=== PATIENT | female | born 1955 | race Hispanic/Latino ===

== ENCOUNTER 2019-02-23 12:27 | Emergency (ER) | payer MEDICARE, OTHER ==
[2019-02-23] MEDS ORDERED: SODIUM CHLORIDE 0.9% 1000ML 1,000 ML IV ONE (13:08)
[2019-02-23] MEDS ORDERED: ACETAMINOPHEN 325 MG TAB ONE (13:08)
[2019-02-23 13:12] LABS: BASOPHILS % (AUTO) 0.5 % (0.0-5.0); EOSINOPHILS % (AUTO) 0.8 % (0.0-8.0); HEMATOCRIT 39.4 % (36-48); LYMPHOCYTES % (AUTO) 10.3 % (21.0-51.0); MEAN CORPUSCULAR HEMOGLOBIN 25.5 pg (27.0-33.0); MEAN CORPUSCULAR HGB CONC 31.5 g/dL (32.0-36.0); MEAN CORPUSCULAR VOLUME 80.9 fL (79-99); MONOCYTES % (AUTO) 5.8 % (3.0-13.0); NEUTROPHILS % (AUTO) 82.1 % (40.0-77.0); PLATELET COUNT (AUTO) 282 K/uL (130-400); RED BLOOD CELL COUNT(AUTO) 4.87 MIL/uL (4.00-5.50); RED CELL DISTRIBUTION WIDTH 14.5 % (11.0-15.5)
[2019-02-23 13:14] LABS: APPEARANCE,URINE CLOUDY (CLEAR); BILIRUBIN,URINE NEGATIVE (NEGATIVE); COLOR,URINE YELLOW (YELLOW); GLUCOSE, URINE (UA) NEGATIVE (NEGATIVE); KETONES,URINE NEGATIVE (NEGATIVE); LEUKOCYTE ESTERASE ,URINE LARGE (NEGATIVE); NITRATE,URINE POSITIVE (NEGATIVE); OCCULT BLOOD,URINE LARGE (NEGATIVE); PROTEIN,URINE 30 mg/dL (NEGATIVE)
[2019-02-23 13:19] LABS: CREATININE 1.2 mg/dL (0.5-1.5); POTASSIUM 3.2 mmol/L (3.5-5.1)
[2019-02-23 13:24] LABS: ALBUMIN 3.7 g/dL (3.5-5.0); BILIRUBIN,TOTAL 0.5 mg/dL (0.2-1.0); TOTAL PROTEIN, SERUM 8.3 g/dL (6.0-8.3)
[2019-02-23 13:25] LABS: BACTERIA,URINE Moderate /HPF (None Seen); WBC,URINE 26-50 /HPF (0-1)
[2019-02-23] MEDS ORDERED: CEFTRIAXONE SODIUM 1 GM ONE (13:30)
== END 2019-02-23 14:15 | disposition home or self-care (01) ==
LOC: EDH 12:27
DX: N39.0 Urinary tract infection, site not specified (principal); R51 Headache; I10 Essential (primary) hypertension; M19.90 Unspecified osteoarthritis, unspecified site; Z98.890 Other specified postprocedural states
CPT/HCPCS: 36415; 80053; 81001; 83605; 85025; 87040 ×2; 96374; 99284; J0696; J7030

== ENCOUNTER → 2021-05-15 | Outpatient (CLI) | payer OTHER, MEDICARE | END | disposition home or self-care (01) | LOC: RAH 10:42 | PROVIDERS: ATTEND Internal Medicine Gastroenterology | DX: R10.10 Upper abdominal pain, unspecified (principal); R11.10 Vomiting, unspecified; R14.0 Abdominal distension (gaseous); Z90.49 Acquired absence of other specified parts of digestive tract | CPT/HCPCS: 78264; A9541 ==

== ENCOUNTER → 2022-03-14 | Outpatient (CLI) | payer OTHER, MEDICARE | END | disposition home or self-care (01) | LOC: RAH 10:00 | PROVIDERS: ATTEND Internal Medicine Gastroenterology | DX: K21.9 Gastro-esophageal reflux disease without esophagitis (principal); K44.9 Diaphragmatic hernia without obstruction or gangrene; R10.10 Upper abdominal pain, unspecified; R13.10 Dysphagia, unspecified; R12 Heartburn | CPT/HCPCS: 74240 ==

== ENCOUNTER → 2022-04-09 | Outpatient (CLI) | payer OTHER, MEDICARE | END | disposition home or self-care (01) | LOC: RAH 08:16 | PROVIDERS: ATTEND Internal Medicine Gastroenterology | DX: R13.12 Dysphagia, oropharyngeal phase (principal); R63.30 Feeding difficulties, unspecified | CPT/HCPCS: 74230; 92611 ==

== ENCOUNTER → 2024-07-15 | Outpatient (CLI) | payer OTHER, MEDICARE ==
--- NOTE | 2024-07-15 13:41 | HMCIMG ---
Exam Type: US PELVIC NON-OB COMP Clinical Information: ABN RESULTS OF LIVER FUNCTION TESTS Comparison: None Findings: Uterus anteverted. Normal size and echogenicity. Normal endometrium. Right ovary obscured. Left adnexa shows a simple cyst measuring 3.6 x 3.5 cm with adjacent free fluid. In addition, there is significant free fluid in the cul-de-sac which may represent cyst rupture. Impression: Left adnexal simple cyst with evidence of possible rupture.
--- NOTE | 2024-07-15 14:43 | HMCIMG ---
Exam Type: US ABDOMINAL COMPLETE Clinical Information: ABN RESULTS OF LIVER FUNCTION TESTS Comparison: None Findings: The liver shows normal echogenicity is otherwise unremarkable. Doppler evaluation shows patent portal and hepatic veins. The gallbladder is surgically absent. No bile duct dilatation is noted. The common bile duct measures 4 mm. The right kidney measures 9.3 x 4.5 cm. The left kidney measures 9.6 x 4.5 cm. The kidneys show no hydronephrosis or calculi, masses or other abnormalities. The pancreas is unremarkable. The spleen is unremarkable. The aorta and inferior vena cava show no significant abnormalities. IMPRESSION: Status post cholecystectomy. Otherwise unremarkable exam.
== END | disposition home or self-care (01) ==
LOC: RAH 09:03
PROVIDERS: ATTEND Family Medicine
DX: N83.292 Other ovarian cyst, left side (principal); N85.4 Malposition of uterus; R94.5 Abnormal results of liver function studies; R10.2 Pelvic and perineal pain; Z90.49 Acquired absence of other specified parts of digestive tract
CPT/HCPCS: 76700; 76856